=== PATIENT | female | born 1980 | race African-American/Black ===

== ENCOUNTER 2020-04-25 08:45 | Inpatient (IN) | payer BC ==
[2020-04-25 10:04] VITALS: BMI 23.9
[2020-04-25] MEDS ORDERED: DINOPROSTONE 10 MG VAGINAL SUPPOSITORY VG ONE (10:31)
[2020-04-25] MEDS ORDERED: AMPICILLIN - 2 GM in SODIUM CHLORIDE 100 ML IVPB ONE (10:32)
--- NOTE | 2020-04-25 10:49 | HP ---
Past Medical History - Primary Care Physician PCP:: Sameer Dubose - Admission Chief Complaint: 40 yo EDC 05/07/2020 scheduled for Induction of labor due to IUGR (3%) advised by Dr Jessica Toro [facility] @ [facility]. History of Present Illness: 40 yo EDC 05/07/2020 scheduled for Induction of labor due to IUGR (3%) advised by Dr Jessica Toro [facility] @ [facility]. 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.Spon : 3 ...Induced : 0 ...Living Children: 1 ...Multiple Gestation: 0 ...LMP: 08/01/19 ... Weeks Gestation by Dates: 38 ...EDC by Dates: 05/07/20 Heme/Onc: Yes: Anemia - Past Surgical History Past Surgical History: Yes: None Hx Myomectomy: No Hx Transabdominal Cerclage: No - Smoking History Smoking history: Never smoked Have you smoked in the past 12 months: No - Alcohol/Substance Use Hx Alcohol Use: No - Social History Usual Living Arrangement: Yes: With Significant Other Home Medications - Allergies Allergies/Adverse Reactions: Allergies Allergy/AdvReac Type Severity Reaction Status Date / Time No Known Allergies Allergy Verified 04/25/20 09:34 - Home Medications Home Medications: Ambulatory Orders Multivitamin Tablet 04/25/20 Family Medical History Family Hx Cardiac Disorders: Mother, Father Review of Systems - Review of Systems Constitutional: reports: No Symptoms Eyes: reports: No Symptoms HENT: reports: No Symptoms Neck: reports: No Symptoms Cardiovascular: reports: No Symptoms Respiratory: reports: No Symptoms Gastrointestinal: reports: No Symptoms Genitourinary: reports: No Symptoms Breasts: reports: No Symptoms Reported Musculoskeletal: reports: No Symptoms Integumentary: reports: No Symptoms Neurological: reports: No Symptoms Endocrine: reports: No Symptoms Hematology/Lymphatic: reports: No Symptoms Psychiatric: reports: No Symptoms Physical Exam - Maternity Constitutional: Yes: Well Nourished, No Distress Eyes: Yes: WNL HENT: Yes: WNL Neck: Yes: WNL Cardiovascular: Yes: WNL Breast(s): Yes: WNL - Abdominal Exam/OB Fundal Height: 35 Number of Fetuses: Single Presentation: Vertex Contractions: No Regularity: Irritability Intensity: Unaware Monitor Mode: External Heart Rate Location: [facility] Category: I Accelerations: Uniform Decelerations: None - Vaginal Exam/OB Vaginal Bleeding: No Dilatation (cm): 1 Effacement (%): 50 Amniotic Membrane Status: Intact Presentation: Vertex/Position Station: -2 - Physical Exam Musculoskeletal: Yes: WNL Extremities: Yes: WNL Edema: No Integumentary: Yes: WNL Deep Tendon Reflex Grade: Normal +2 ...Motor Strength: WNL Psychiatric: Yes: WNL Hemorrhage Risk Assessment - Risk Factors Risk Score: 1 Risk Level: Medium Risk Problem List - Problems (1) AMA (advanced maternal age) multigravida 35+ Code(s): O09.529 - SUPERVISION OF ELDERLY MULTIGRAVIDA, UNSPECIFIED TRIMESTER (2) 38 weeks gestation of Code(s): Z3A.38 - 38 WEEKS GESTATION OF (4) GBS carrier Code(s): Z22.330 - CARRIER OF GROUP B STREPTOCOCCUS Assessment/Plan Admit to Induction of labor May ambulate
[2020-04-25] MEDS: ELECTROLYTE-148 SOLN 1,000 ML IV SCH ×2 (11:00→18:49)
[2020-04-25 11:49] LABS: BASO % 0.4 % (0-2.0); EOS % 0.3 % (0-4.5); HEMATOCRIT 32.3 % (32.4-45.2); HEMOGLOBIN 10.5 GM/dL (10.7-15.3); LYMPH % 17.5 % (8-40); MCH 27.4 pg (25.7-33.7); MCHC 32.5 g/dl (32.0-36.0); MEAN CELL VOLUME 84.3 fl (80-96); MEAN PLT VOLUME 9.4 fl (7.5-11.1); MONO % 11.2 % (3.8-10.2); NEUT % 70.6 % (42.8-82.8); PLATELET COUNT 181 K/MM3 (134-434); RBC 3.83 M/mm3 (3.60-5.2); RDW 13.8 % (11.6-15.6); WHITE BLOOD COUNT 9.9 K/mm3 (4.0-10.0)
[2020-04-25 11:55] LABS: INR 0.87 (0.83-1.09); PROTHROMBIN TIME (PATIENT) 10.2 SEC (9.7-13.0)
[2020-04-25 11:58] LABS: ACTIVATED PTT 28.1 SECONDS (25.2-36.5)
[2020-04-25 12:24] LABS: BLOOD UREA NITROGEN 8.2 mg/dL (7-18); CALCIUM 9.4 mg/dL (8.5-10.1); CREATININE 0.6 mg/dL (0.55-1.3); POTASSIUM 4.1 mmol/L (3.5-5.1)
[2020-04-25 15:25] LABS: PH,URINE 7.5 (5.0-8.0); URINE APPEARANCE CLEAR; URINE BILIRUBIN NEGATIVE (NEGATIVE); URINE COLOR YELLOW; URINE GLUCOSE (UA) NEGATIVE (NEGATIVE); URINE KETONE NEGATIVE (NEGATIVE); URINE LEUK ESTERASE NEGATIVE (NEGATIVE); URINE NITRITE NEGATIVE (NEGATIVE); URINE PROTEIN NEGATIVE (NEGATIVE); URINE UROBILINOGEN 0.2 mg/dL (0.2-1.0)
[2020-04-25 15:40] LABS: BASO % 0.7 % (0-2.0); EOS % 0.9 % (0-4.5); HEMATOCRIT 31.5 % (32.4-45.2); HEMOGLOBIN 10.2 GM/dL (10.7-15.3); LYMPH % 20.6 % (8-40); MCH 27.5 pg (25.7-33.7); MCHC 32.2 g/dl (32.0-36.0); MEAN CELL VOLUME 85.4 fl (80-96); MEAN PLT VOLUME 9.6 fl (7.5-11.1); MONO % 12.2 % (3.8-10.2); NEUT % 65.6 % (42.8-82.8); PLATELET COUNT 170 K/MM3 (134-434); RBC 3.69 M/mm3 (3.60-5.2); RDW 13.8 % (11.6-15.6); WHITE BLOOD COUNT 9.4 K/mm3 (4.0-10.0)
[2020-04-25 16:15] LABS: BLOOD UREA NITROGEN 7.4 mg/dL (7-18); CALCIUM 8.9 mg/dL (8.5-10.1); CREATININE 0.5 mg/dL (0.55-1.3); POTASSIUM 3.9 mmol/L (3.5-5.1)
[2020-04-25] MEDS ORDERED: AMPICILLIN SODIUM 2 GM VIAL ONE (22:34)
--- NOTE | 2020-04-25 23:26 | PN ---
Progress Note (short form) - Note Progress Note: Pt c/o mild UC VSS, afebrile received ampicilin 2 gm VE - 3 cm, 50%, -1 vtx, IM, cervidil removed EFM baseline 140 bpm, reactive, cat 1 TOCO UC q 3-5 min A/P Induction of labor for IUGR Pitocin augmentation Pain meds vs epidural discussed Problem List - Problems (1) AMA (advanced maternal age) multigravida 35+ Code(s): O09.529 - SUPERVISION OF ELDERLY MULTIGRAVIDA, UNSPECIFIED TRIMESTER (2) 38 weeks gestation of Code(s): Z3A.38 - 38 WEEKS GESTATION OF (4) GBS carrier Code(s): Z22.330 - CARRIER OF GROUP B STREPTOCOCCUS
[2020-04-25] MEDS ORDERED: BUTORPHANOL TARTRATE 2 MG/ML VIAL IVPB ONE (23:27)
[2020-04-25] MEDS ORDERED: PROMETHAZINE HCL 25 MG/1 ML VIAL IVPB ONE (23:27)
[2020-04-25] MEDS ORDERED: OXYTOCIN 30 UNITS in 0.9% NS 30 UNIT/500 ML INFUS.BAG IVPB SCH (23:30)
[2020-04-26] MEDS ORDERED: OXYTOCIN 30 UNITS in 0.9% NS 30 UNIT/500 ML INFUS.BAG IVPB ONE ×2 (00:58→05:43)
[2020-04-26] MEDS ORDERED: AMPICILLIN SODIUM 1 GM VIAL ONE ×4 (02:27→10:24)
--- NOTE | 2020-04-26 02:27 | PN ---
Progress Note (short form) - Note Progress Note: Pt c/o mild UC VSS, afebrile VE - 3 cm, 50%, -1 vtx, IM, EFM baseline 140 bpm, reactive, cat 1 TOCO UC q 3-5 min A/P Induction of labor for IUGR Pitocin augmentation Pain meds vs epidural discussed Problem List - Problems (1) AMA (advanced maternal age) multigravida 35+ Code(s): O09.529 - SUPERVISION OF ELDERLY MULTIGRAVIDA, UNSPECIFIED TRIMESTER (2) 38 weeks gestation of Code(s): Z3A.38 - 38 WEEKS GESTATION OF (4) GBS carrier Code(s): Z22.330 - CARRIER OF GROUP B STREPTOCOCCUS
[2020-04-26] MEDS: AMPICILLIN - 1 GM in SODIUM CHLORIDE 100 ML IVPB SCH ×5 (02:30→14:52)
--- NOTE | 2020-04-26 05:26 | PN ---
Progress Note (short form) - Note Progress Note: Pt c/o mild UC VSS, afebrile VE - 3 - 4 cm, 70%, -1 vtx, AROM - clear AF, EFM baseline 140 - 145 bpm, reactive, cat 1 TOCO UC q 3-5 min A/P Induction of labor for IUGR Pitocin augmentation Pain meds vs epidural discussed Problem List - Problems (1) AMA (advanced maternal age) multigravida 35+ Code(s): O09.529 - SUPERVISION OF ELDERLY MULTIGRAVIDA, UNSPECIFIED TRIMESTER (2) 38 weeks gestation of Code(s): Z3A.38 - 38 WEEKS GESTATION OF (4) GBS carrier Code(s): Z22.330 - CARRIER OF GROUP B STREPTOCOCCUS
[2020-04-26] MEDS ORDERED: FENTANYL/BUPIVACAINE/NS/PF - PCEA - 50 ML DISP.SYRIN EP ONE ×2 (06:24→10:48)
[2020-04-26] MEDS ORDERED: PCA PUMP NR ONE (06:26)
[2020-04-26] MEDS: ELECTROLYTE-148 SOLN 1,000 ML IV SCH ×3 (06:30→13:16)
[2020-04-26] MEDS ORDERED: BUPIVACAINE HCL/PF 0.25% (2.5MG/ML) 10 ML VIAL ONE (06:42)
[2020-04-26] MEDS ORDERED: NALOXONE HCL 0.4 MG/ML VIAL IVPUSH PRN (07:11)
[2020-04-26] MEDS ORDERED: FENTANYL/BUPIVACAINE/NS/PF - PCEA - 50 ML DISP.SYRIN EP SCH (07:15)
--- NOTE | 2020-04-26 07:43 | PN ---
Progress Note (short form) - Note Progress Note: Pt c/o painfull UC, s/p epidural anesthesia VSS, afebrile VE - 4-5 cm, 80%, -1 vtx, clear AF, EFM baseline 140 bpm, reactive, cat 1 TOCO UC q 3-5 min A/P Induction of labor for IUGR Pitocin augmentation epidural discussed given Close observation Problem List - Problems (1) AMA (advanced maternal age) multigravida 35+ Code(s): O09.529 - SUPERVISION OF ELDERLY MULTIGRAVIDA, UNSPECIFIED TRIMESTER (2) 38 weeks gestation of Code(s): Z3A.38 - 38 WEEKS GESTATION OF (4) GBS carrier Code(s): Z22.330 - CARRIER OF GROUP B STREPTOCOCCUS
--- NOTE | 2020-04-26 09:33 | PN ---
Progress Note (short form) - Note Progress Note: Pt no c/o, s/p epidural anesthesia VSS, afebrile VE - 6 cm, 80%, -1 vtx, clear AF, EFM baseline 140 bpm, reactive, cat 1 TOCO UC q 3-4 min A/P Induction of labor for IUGR Pitocin augmentation epidural discussed given Close observation Problem List - Problems (1) AMA (advanced maternal age) multigravida 35+ Code(s): O09.529 - SUPERVISION OF ELDERLY MULTIGRAVIDA, UNSPECIFIED TRIMESTER (2) 38 weeks gestation of Code(s): Z3A.38 - 38 WEEKS GESTATION OF (4) GBS carrier Code(s): Z22.330 - CARRIER OF GROUP B STREPTOCOCCUS
[2020-04-26] MEDS ORDERED: SODIUM CHLORIDE 100 ML IVPB ONE (10:24)
[2020-04-26] MEDS ORDERED: LIDOCAINE HCL 1% PRESERVATIVE FREE - 30ML VIAL ONE (11:17)
[2020-04-26] MEDS ORDERED: OXYTOCIN 20 UNITS in 0.9% NS 20 UNIT/1,000 ML INFUS.BAG IV ONE (11:17)
[2020-04-26] MEDS ORDERED: ACETAMINOPHEN 325 MG TABLET (FP) PO PRN (12:02)
[2020-04-26] MEDS ORDERED: BISACODYL 10 MG SUPP.RECT RC PRN (12:02)
[2020-04-26] MEDS ORDERED: BENZOCAINE 20% 57 GM BOTTLE TP PRN (12:02)
[2020-04-26] MEDS ORDERED: WITCH HAZEL 50% (TUCKS) 40 PAD/JAR PAD TP PRN (12:02)
[2020-04-26] MEDS ORDERED: METHYLERGONOVINE MALEATE 0.2 MG/1 ML AMP IM PRN (12:02)
[2020-04-26] MEDS ORDERED: BENZOCAINE 28 GM HEMORRHOIDAL OINTMENT TP PRN (12:02)
[2020-04-26] MEDS ORDERED: IBUPROFEN 600 MG TABLET (FP) PO PRN (12:02)
--- NOTE | 2020-04-26 12:02 | PN ---
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
[2020-04-26] MEDS ORDERED: OXYTOCIN 20 UNITS in 0.9% NS 20 UNIT/1,000 ML INFUS.BAG IV SCH (12:15)
[2020-04-26] MEDS ORDERED: ONDANSETRON 4 MG/2 ML VIAL ONE (12:42)
[2020-04-26] MEDS ORDERED: ONDANSETRON 4 MG/2 ML VIAL IVPUSH ONE (12:45)
[2020-04-26] MEDS ORDERED: IBUPROFEN 600 MG TABLET (FP) PO ONE (13:39)
[2020-04-26 14:06] LABS: CORD BASE EXCESS -6.4 mmol/L (0-2); CORD HCO3 21.2 mmHg (20-29); CORD PCO2 49.2 mmHg (30-78); CORD pH 7.252 (7.14-7.44)
[2020-04-26 14:09] LABS: CORD BASE EXCESS -8.1 mmol/L (0-2); CORD HCO3 19.1 mmHg (20-29); CORD PCO2 45.6 mmHg (30-78); CORD pH 7.241 (7.14-7.44)
[2020-04-27 08:04] LABS: BASO % 0.4 % (0-2.0); EOS % 0.6 % (0-4.5); HEMATOCRIT 25.4 % (32.4-45.2); HEMOGLOBIN 8.1 GM/dL (10.7-15.3); LYMPH % 16.2 % (8-40); MCHC 31.8 g/dl (32.0-36.0); MEAN CELL VOLUME 84.9 fl (80-96); MEAN PLT VOLUME 9.6 fl (7.5-11.1); MONO % 9.4 % (3.8-10.2); NEUT % 73.4 % (42.8-82.8); PLATELET COUNT 153 K/MM3 (134-434); RDW 13.6 % (11.6-15.6)
--- NOTE | 2020-04-27 11:55 | PN ---
Post Progress Note - Subjective Subjective: Feels better Type of Delivery: Vital Signs: Vital Signs Temperature 98.8 F 04/27/20 10:00 Pulse Rate 85 04/27/20 10:00 Respiratory Rate 18 04/27/20 10:00 Blood Pressure 119/68 04/27/20 10:00 O2 Sat by Pulse Oximetry (%) 97 04/27/20 06:00 Breast Exam: Yes: Soft Uterus: Yes: Fundus Firm, Fundus below umbilicus Abdomen/GI: Yes: Abdomen soft Lochia: Yes: Rubra Lochia, amount: Small Extremities: Yes: Calves non-tender Perineum: Yes: Laceration Activity: Ambulating (regular diet May go home today) - Labs Labs: CBC WBC 17.0 K/mm3 (4.0-10.0) H 04/27/20 07:45 RBC 3.00 M/mm3 (3.60-5.2) L 04/27/20 07:45 Hgb 8.1 GM/dL (10.7-15.3) L 04/27/20 07:45 Hct 25.4 % (32.4-45.2) L D 04/27/20 07:45 MCV 84.9 fl (80-96) 04/27/20 07:45 MCH 27.0 pg (25.7-33.7) 04/27/20 07:45 MCHC 31.8 g/dl (32.0-36.0) L 04/27/20 07:45 RDW 13.6 % (11.6-15.6) 04/27/20 07:45 Plt Count 153 K/MM3 (134-434) 04/27/20 07:45 MPV 9.6 fl (7.5-11.1) 04/27/20 07:45 Absolute Neuts (auto) 12.5 K/mm3 (1.5-8.0) H 04/27/20 07:45 Neutrophils % 73.4 % (42.8-82.8) 04/27/20 07:45 Lymphocytes % 16.2 % (8-40) D 04/27/20 07:45 Monocytes % 9.4 % (3.8-10.2) 04/27/20 07:45 Eosinophils % 0.6 % (0-4.5) 04/27/20 07:45 Basophils % 0.4 % (0-2.0) 04/27/20 07:45 Nucleated RBC % 0 % (0-0) 04/27/20 07:45 Problem List - Problems (1) AMA (advanced maternal age) multigravida 35+ Code(s): O09.529 - SUPERVISION OF ELDERLY MULTIGRAVIDA, UNSPECIFIED TRIMESTER (2) 38 weeks gestation of Code(s): Z3A.38 - 38 WEEKS GESTATION OF (4) GBS carrier Code(s): Z22.330 - CARRIER OF GROUP B STREPTOCOCCUS
--- NOTE | 2020-04-27 11:58 | DS ---
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 Signs: Vital Signs Temperature 98.8 F 04/27/20 10:00 Pulse Rate 85 04/27/20 10:00 Respiratory Rate 18 04/27/20 10:00 Blood Pressure 119/68 04/27/20 10:00 O2 Sat by Pulse Oximetry (%) 97 04/27/20 06:00 Constitutional: Yes: Well Nourished Eyes: Yes: WNL HENT: Yes: WNL Neck: Yes: WNL Cardiovascular: Yes: WNL Respiratory: Yes: WNL Gastrointestinal: Yes: WNL Internal Exam Deferred: Yes ....Post : Yes: Uterus firm, Uterus non-tender Breast(s): Yes: WNL Musculoskeletal: Yes: WNL Extremities: Yes: WNL Integumentary: Yes: WNL Neurological: Yes: WNL ...Motor Strength: WNL Psychiatric: Yes: WNL Labs: CBC, BMP 04/27/20 07:45 04/25/20 15:00 Delivery - Delivery Vaginal Delivery: No Problems, Spontaneous Type of Anesthesia: Epidural Episiotomy/Laceration: 1st degree EBL (cc): 400 Delivery, Single - Stages of Labor Date 1st Stage Initiatied: 04/26/20 Time 1st Stage Initiated: 06:00 Date 2nd Stage Initiated: 04/26/20 Time 2nd Stage Initiated: 11:20 Date of Delivery: 04/26/20 Time of Delivery: 11:32 Time Placenta Delivered: 11:35 Placenta: Yes: Spontaneous - 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 of 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/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 Drum Present: No Infant Gender: Female Weight: 2.58 kg Position: OA Total Hours ROM (Hrs/Mins): 6 hours 35 minutes - 1 Minute Total Score: 8 5 Minutes Total Score: 9 - [place] Feeding Plan Initial Plan: Exclusive throughout hospitalization Benefits of Exclusively reinforced: Yes Discharge Summary Problems reviewed: Yes Reason For Visit: INDUCTION OF LABOR Current Active Problems 38 weeks gestation of (Acute) AMA (advanced maternal age) multigravida 35+ (Acute) GBS carrier (Acute) IUGR (intrauterine growth restriction) (Acute) Procedures: Principal: Hospital Course: anemia Plan of Treatment: May go home today Motrin ferrous sulfate f/u in 4-5 weeks Condition: Good - Instructions Diet, Activity, Other Instructions: regular Activity as tolerated Motrin for pain Ferrous sulfate F/U in 4-5 weeks/prn Disposition: HOME - Home Medications Comprehensive Discharge Medication List: Ambulatory Orders Multivitamin Tablet 04/25/20
[2020-04-28 09:57] VITALS: BP 112/68; PULSE 86; TEMP 98.6
--- NOTE | 2020-05-01 17:04 | PATH ---
Surgical Pathology Report Patient Name: SHAYAN GALINDO [facility]. Rec. 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 Specimen(s) Received PLACENTA Clinical History , term x1, SAB x3, 38.3 weeks, IUGR, Final Diagnosis PLACENTA, DELIVERY: 374 G THIRD TRIMESTER PLACENTA WITH TRIVASCULAR UMBILICAL CORD AND UNREMARKABLE PLACENTAL MEMBRANES. Electronically Signed Herlinda Echevarria M.D. Gross Description The specimen is received fresh labeled placenta and is a 374 gram, 15.0 x 14.0 x 3.0 cm. placenta with attached membranes and umbilical cord. The attached membranes are palomo, translucent with focal opacities and insert marginally. The umbilical cord measures 11.5 cm. in length and averages 1.2 cm. in diameter. The cord inserts eccentrically, 3 cm. to the nearest margin. No true knots or strictures are identified. Cut surface of the umbilical cord reveals 3 vessels. The surface is fisher-blue with minimal fibrin deposition and appropriate caliber vessels. The maternal surface is red-brown with focal defects. Sectioning reveals red-brown, spongy parenchyma. No lesions are identified. Feed Preparation Operator sections are submitted in three cassettes as follows: 1- membrane rolls and umbilical cord; 2-3- full thickness sections of placenta. /04/30/2020 [facility]04/30/2020
== END 2020-04-28 17:50 | disposition home or self-care (01) | DRG 807 ==
LOC: JLDR 08:45 → J3W 04-26 16:00
PROVIDERS: ADMIT Obstetrics & Gynecology; ATTEND Obstetrics & Gynecology
PROC: 10E0XZZ Delivery of Products of Conception, External Approach (ICD-10-PCS; principal; 2020-04-26)
PROC: 0HQ9XZZ Repair Perineum Skin, External Approach (ICD-10-PCS; 2020-04-26)
DX: O36.5930 Maternal care for other known or suspected poor fetal growth, third trimester, not applicable or unspecified (principal); Z37.0 Single live birth; O99.02 Anemia complicating childbirth; D64.9 Anemia, unspecified; O99.824 Streptococcus B carrier state complicating childbirth; O70.0 First degree perineal laceration during delivery; Z3A.38 38 weeks gestation of pregnancy
CPT/HCPCS: 36415; 36600; 59409; 80048; 81003; 82803; 85025; 85610; 85730; 86780; 86850; 86900; 86901; 87340; 88307-TC; U0003